=== PATIENT | male | born 1985 | race African-American/Black ===

== ENCOUNTER 2022-09-01 23:26 | Emergency (ER) | payer OTHER ==
[~2022-09-01] VITALS: Ht 177.8 cm; Wt 114.0 kg
[2022-09-01 23:31] VITALS: BP 126/64; PULSE 100; RESP 22; TEMP 98.4; O2SAT 97
== END 2022-09-01 23:55 | disposition left against medical advice (07) ==
LOC: ER 23:26
DX: Z53.21 Procedure and treatment not carried out due to patient leaving prior to being seen by health care provider (principal)
CPT/HCPCS: 99281